=== PATIENT | female | born 1985 | race Caucasian/White ===

== ENCOUNTER → 2019-01-04 | Outpatient (CLI) | payer OTHER ==
[~2019-01-04] MED LIST: D50KC PO; ETON68IM2 SQ; FENO134C PO; FENO48TA2 PO; FOLI0.4T2 PO; LINA5TAB PO; METF-380 PO; METF500T8 PO; NF-ESOM40C PO; NF-LOVAZAC PO; PREN1TAB39 PO; SPIR100T37 PO; SPIR25TA3 PO
--- NOTE | 2019-01-04 13:54 | Diagnostic Imaging Report ---
PROCEDURE: US Non-ob pelvis comp/trans. TECHNIQUE: Multiple realtime grayscale images were obtained of the pelvis in various projections endovaginally. Transabdominal imaging was also performed. INDICATION: Heavy menses. The previous pelvic ultrasound of 12/25/2015 noted that the ovaries were enlarged and there were multiple subcentimeter follicles involving both ovaries. The possibility of polycystic ovarian syndrome was raised. On this study there are again multiple cysts/follicles associated with both ovaries, particularly the right ovary. The largest cyst on the right ovary measures approximately 1.4 x 2.7 cm. The largest cyst on the left ovary measures 0.7 x 1.6 mm. There is no solid pelvic mass or free fluid collection noted. The uterus is nongravid and not enlarged measuring 9.6 x 5.7 x 4.2 cm. There is a small 1.1 x 1.4 cm area of altered echogenicity within the uterine fundus. This may represent a small fibroid. The endometrial line is thickened, measuring 12 mm (normal 5 mm or less). This finding is nonspecific. Correlation with the patient's menstrual cycle recommended. IMPRESSION: 1. There are again cysts/follicles associated with both ovaries. These seem similar to the prior exam. There is no acute pelvic abnormality noted otherwise. 2. The uterus is prominent and there is a question of a small fibroid in the uterine fundus. Dictated by: Dictated on workstation # [id number]
== END ==
LOC: RAD 10:34
PROVIDERS: ATTEND Nurse Practitioner
DX: Z01.419 Encounter for gynecological examination (general) (routine) without abnormal findings (principal); N92.0 Excessive and frequent menstruation with regular cycle
CPT/HCPCS: 76830; 76856

== ENCOUNTER 2019-10-11 20:46 | Emergency (ER) | payer OTHER ==
[~2019-10-11] VITALS: Ht 162 cm; Wt 125.0 kg
--- OUTSIDE RECORDS SUMMARY | 2019-10-11 20:56 | XMS REPORT ---
Author Author Griselda GILBERT Organization [facility] Address [address] [place] [address] Care Team Providers Care Shipping Receiving Clerk Name Role Phone JASMEET GILBERT Unavailable PROBLEMS Type Condition ICD9-CM Code [id number] Code Onset Dates Condition S tatus SNOMED Code Problem Rhinosinusitis J32.9 Active 48198 4004 ALLERGIES No Information ENCOUNTERS Encounter Location Date Diagnosis [facility] [address] [facility] [id number] [address] [place] [id number] Mar, Encounter for immunization Z 23 [facility] [address] [facility] [id number] [address] [place] [id number] Feb, Rhinosinusitis J32.9 and BMI 40.0-44.9, adult Z68.41 IMMUNIZATIONS Vaccine Route Administration Date Status FLULAVAL QUAD 0.5ML (6 MO & UP) 2017 IM Intramuscular Mar 14 18 Administered SOCIAL HISTORY Never Assessed REASON FOR VISIT Flu shot Mustapha Baron MA PLAN OF CARE VITAL SIGNS MEDICATIONS Unknown Medications RESULTS No Results PROCEDURES Procedure Date Ordered Result Body Site FLULAVAL QUAD 0.5ML (6 MO AND UP) 2018 Mar 14, 2018 SINGLE IMMUNIZATION ADMIN Mar 14, 2018 INSTRUCTIONS MEDICATIONS ADMINISTERED No Known Medications MEDICAL (GENERAL) HISTORY Type Description Date Medical History Pre Daibetes Medical History PCOS Medical History Ashtma Medical History High Cholesterol Surgical History Gallbladder Surgery 2007 Surgical History Lt knee - cyst removed 2007 Surgical History 2013 Hospitalization History Post Op
--- OUTSIDE RECORDS SUMMARY | 2019-10-11 20:56 | XMS REPORT ---
Author Griselda Penny Organization [facility] Address [address] [place] [address] Care Team Providers Care Mixed Signal Design Engineer Name Role Phone TEOFILO GONZALES Unavailable PROBLEMS Type Condition ICD9-CM Code [id number] Code Onset Dates Condition S tatus SNOMED Code Problem Rhinosinusitis J32.9 Active 97926 2834 ALLERGIES Substance Reaction Event Type Date Status Penicillin V Potassium hives Drug Allergy Feb, Activ e ENCOUNTERS Encounter Location Date Diagnosis [facility] [address] [facility] [id number] [address] [place] [address] Feb, Rhinosinusitis J32.9 and BMI 40.0-44.9, adult Z68.41 IMMUNIZATIONS No Known Immunizations SOCIAL HISTORY Never Assessed REASON FOR VISIT sinus pressure, nasal drainage down the back of her throat, denies cough. been s ick for 3 days. sabrina PLAN OF CARE Activity Details Follow Up as needed or reg fu with itz martinez Reason: VITAL SIGNS Height 64 in 2018-02-11 Weight 260.0 lbs 2018-02-11 Temperature 97.6 degrees Fahrenheit 2018-02-11 Heart Rate 82 bpm 2018-02-11 Respiratory Rate 20 2018-02-11 BMI 44.62 kg/m2 2018-02-11 Blood pressure systolic 124 mmHg 2018-02-11 Blood pressure diastolic 78 mmHg 2018-02-11 MEDICATIONS Medication Instructions Dosage Frequency Start Date End Date Duration S tatus Lexapro 5 MG Orally Once a day 1 tablet 24h Active Singulair 10 MG Orally Once a day 1 tablet 24h Active Metformin HCl 500 MG ER Orally Once a day 1 tablet with a meal 24h Active Fenofibrate 145 MG Orally Once a day 1 capsule with food 24h Active ProAir HFA Inhalation every 6 hrs 2 puffs as needed 6h Active Pseudoephedrine HCl ER 120 MG Orally every 12 hrs 1 tablet as neede d 12h Feb, 10 days Active Spironolactone 100 MG Orally Once a day 1 tablet 24h Active RESULTS No Results PROCEDURES No Known procedures INSTRUCTIONS MEDICATIONS ADMINISTERED No Known Medications MEDICAL (GENERAL) HISTORY Type Description Date Medical History Pre Daibetes Medical History PCOS Medical History Asha Medical History High Cholesterol Surgical History Gallbladder Surgery 2007 Surgical History Lt knee - cyst removed 2007 Surgical History 2013 Hospitalization History Post Op
--- OUTSIDE RECORDS SUMMARY | 2019-10-11 20:56 | XMS REPORT ---
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 Address [address] [address] Care Team Providers Care Head Up Operator Name Role Phone JENNIFER CORRALES Unavailable JENNIFER CORRALES DO Unavailable Unavailable SAMAN CORRALESP Unavailable Unavailable JORGE LUIS SCOTT FACCJEROMY FACP CCDS Unavailable Unavailabl e TEOFILO GONZALES Unavailable JAY MANRIQUE COMMUNITY DEVELOPMENT TECHNICIAN Unavailable Unavailable Unavailable Unavailable Unavailable Unavailable Unavailable Unavailable Allergies Normalized Allergy Reported Date of Reaction(s) Care Provider Facility Allergy Type classification allergen Allergy Onset DA (22 Unclassified No Known Drug 10-16-2009 - no information SAMAN Not Available sources.) Allergies ANTONI (06979) Drug Allergy penicillin v penicillin v 02-11-2018 - [place] [facility] (1 source.) Translations: [facility]IAN [id number] [facility] [ Penicillin V of [facility]] [place] ([address]) Medications Medication Ingredient Drug Dose Dates Status Sig Sig Care Class(es) (Normalized) (Original) Provid er no albuterol beta2-Adren 2 Active take 2 ProAir HFA no information ergic puff(s puff(s) by Inhalation name (1 source.) Agonist ) inhalation every 6 hrs every six 2 puffs as hours as needed 6h needed Active escitalopra escitalopra Serotonin 5 mg Active no Lexapro 5 MG no m 5 mg oral m Reuptake information Orally Once name tablet (1 Translation Inhibitor a day 1 source.) s: [ tablet 24h Lexapro 5 Active MG] montelukast montelukast Leukotriene 10 mg Active no Singulai r 10 no 10 mg oral Translation Receptor information MG Orally name tablet (1 s: [ Antagonist Once a day 1 source.) Singulair tablet 24h 10 MG] Active 12 hr pseudoephed alpha-Adren 120 mg 02-12-20 Active no Pse udoephedr no pseudoePHED rine ergic 18 information ine HCl ER n leobardo rine Translation Agonist 120 MG hydrochlori s: [ Orally every de 120 mg Pseudoephed 12 hrs 1 extended rine HCl ER tablet as release 120 MG] needed 12h oral tablet Feb, (1 source.) 10 days Active Problems Problem Normalized Date Last Normalized Normalized Provider Fa cility Classification Problem(s) Recorded Problem Problem Sta tus Duration Unclassified Abnormal Episodic Active ALI JORGE LUIS , Not Leslie ilable (11 sources.) cardiovascular MD AVILA () function study, unspecified Other Body mass Chronic [facility] nutritional; index (BMI) [address] endocrine; and 40.0-44.9, of [facility] metabolic adult [place] ([address]781) disorders (1 Translations: source.) [ - BMI 40.0-44.9, adult Z68.41] Other Body Mass Chronic Active ALI JORGE LUIS , Not Avail able nutritional; Index MD AVILA () endocrine; and 45.0-49.9, metabolic adult disorders (11 sources.) Other upper Chronic Chronic Active [facility] respiratory sinusitis, [address] infections (2 unspecified of [place] sources.) Translations: [place] () [ Rhinosinusitis , - Rhinosinusitis J32.9] Other nervous Disturbances Episodic Active SAMAN Not A vailable system of sensation CORRALES (84699) disorders (9 of smell and sources.) taste Spondylosis; Dorsalgia, Episodic Active SAMAN Not Avai lable intervertebral unspecified CORRALES (82677) disc Translations: disorders; [ other back RADICULOPATHY, problems (20 SITE sources.) UNSPECIFIED] Menstrual Excessive and Chronic Active JAY [facility] Via disorders (2 frequent Gayle sources.) menstruation Hospital - with regular [place] cycle (43914) Headache; Headache Episodic Active SAMAN Not Available including CORRALES (75192) migraine (9 sources.) Other Long-term Episodic Active ALI JORGE LUIS , Not Avail able aftercare (11 (current) use MD AVILA (91432) sources.) of other medications Other Obesity, Chronic Active ALI JORGE LUIS , Not Availa ble nutritional; unspecified MD FACC (85126) endocrine; and metabolic disorders (11 sources.) Diabetes Other abnormal Episodic Active ALI JORGE LUIS , Not Available mellitus glucose [facility] (56170) without complication (11 sources.) Other Other and Chronic Active SAMAN Not Availabl e endocrine unspecified CORRALES (34144) disorders (9 anterior sources.) pituitary hyperfunction Disorders of Other and Chronic Active ALI JORGE LUIS , Not Av ailable lipid unspecified MD FAC (46257) metabolism (11 hyperlipidemia sources.) Nonspecific Other chest Episodic Active JENNIFER Not Avai lable chest pain (22 pain CORRALES , DO (96607) sources.) Translations: [ CHEST PAIN NOS] Other Polycystic Chronic Active SAMAN Not Availab le endocrine ovarian CORRALES (58253) disorders (11 syndrome sources.) Spondylosis; Spinal Episodic Active JONATHON SWEET , Not A vailable intervertebral stenosis[place] ([address]) disc lumbosacral disorders; region other back Translations: problems (9 [ OTHER sources.) INTERVERTEBRAL DISC DISPLACEMENT, , INTVRT DISC STENOSIS OF NEURAL CANAL OF ] Procedures The data below is from unstructured sourcesNo known history of procedures. No Known procedures No Known procedures Immunizations Normalized Immunization Date Notes Care Provider Facili ty Immunization influenza, seasonal, 02-01-2019 no information no name [facility] injectable [facility] ([address]555) influenza, seasonal, 03-14-2018 no information no name [facility] injectable [facility] ([address]) Results The data below is from unstructured sources No Results Vital Signs Vital Sign Value Interpretation Reference Date Time Care Prov ider Facility (Normalized) (Normalized) Range BMI (Body Mass 44.62 kg/m2 (no code) 15 - 25 kg/m2 02-11-2018 [facility] Index) 14:40-[address] ([address]) Body 97.6 [degF] (no code) 97.8 - 99.0 02-11-2018 [facility] Temperature [degF] 14:40-[address] ([address]) Height 162.56 cm (no code) cm 02-11-2018 [facility] unity 14:40-[address] ([address]) Weight 117.94 kg (no code) kg 02-11-2018 TEOFILO Alvarado unity 14:40-5070 [place] [address] [facility] ([address]) Interventions No Information Plan of Treatment The data below is from unstructured sources Activity Details Follow Up as needed or reg fu with p cp Reason: Goals No Information Social History No Information Functional Status The data below is from unstructured sources Query Response Date Len rded Patient Orientation Person Place Time Situation Normal For Age November 12, 2013 7:46pm Mental Status No Information Encounters Encounter Normalized Encounter Encounter Diagnosis Care Provi gregory Organization Date Type 02-11-2018 (WALK-IN) Walk-In Care Chronic sinusitis, TEOFILO GONZALES (no [facility] unspecified phone) CARE (no phone) 08-28-2017 Patient encounter no information no name no or ganization name 12-25-2015 Patient encounter no information no name no or ganization name 11-19-2015 Patient encounter no information no name no or ganization name 11-10-2015 Patient encounter no information no name no or ganization name 11-12-2013 Patient encounter no information no name no or ganization name - 11-12-2013 08-02-2012 Patient encounter no information no name no or ganization name Patient encounter no information no name no organizat ion name 01-04-2019 Patient encounter no information no name no or ganization name procedure no information Encounter for no name no organization name gynecological examination (general) (routine) without abnormal findings Medical Equipment No Information Payers No Information Advance Directives Directive Response Recor ded Date/Time Advance Directives No 11:12am Health Care Power of Him Specialists No 11/12/13 11:12am Organ Donor Yes 11/12/13 11:12am Resuscitation Status Full Code 11/12/13 11:12am Discharge Instructions No hospital discharge instructions. Additional Source Comments This clinical document has been generated using [employer] software that has been certified by the Office of the National Coordinator for Health Information Technology (ONC 15.99.04.3023.Diam.31.00.0.692473) and the National Committee for Electronic Science Teacher (NCQA, as an eMeasure certified technology). FOR RECORDS PERTAINING TO PATIENTS WHO ARE OR HAVE BEEN ENROLLED IN A CHEMICAL D EPENDENCY/SUBSTANCE ABUSE PROGRAM, SOME INFORMATION MAY BE OMITTED. This clinica l summary was aggregated from multiple sources. Caution should be exercised in using it in the provision of clinical care. This summary normalizes information from multiple sources, and as a consequence, information in this document may ma terially change the coding, format and clinical context of patient data. In parag tion, data may be omitted in some cases. CLINICAL DECISIONS SHOULD BE BASED ON T HE PRIMARY CLINICAL RECORDS. [employer] [facility]. provides no warranty or guara ntee of the accuracy or completeness of information in this document.The followi ng information is based on time limited clinical information UNRECOGNIZED CONTENT PROVIDED BELOW FOR UNRECOGNIZED SECTION REASON FOR VISIT sinus pressure, nasal drainage down the back of her throat, denies cough. been s ick for 3 days. [email or web address] UNRECOGNIZED CONTENT PROVIDED BELOW FOR UNRECOGNIZED SECTION MEDICAL (GENERAL) HISTORY Type Description Date Medical History Pre Daibetes Medical History PCOS Medical History Ashtma Medical History High Cholesterol Surgical History Gallbladder Surgery 2007 Surgical History Lt knee - cyst removed 2007 Surgical History 2013 Hospitalization History Post Op
--- OUTSIDE RECORDS SUMMARY | 2019-10-11 20:57 | XMS REPORT | Continuity of Care Document ---
Author Organization Unknown Address Unknown Phone Unavailable Allergies Active Description Code Type Severity Reaction Onset Reported/Identified Relationship to Patient Clinical Status Yes No Known Drug Allergies [id number] Drug Allergy Unknown N/A 10/16/2009 Medications There is no data. Problems Date Dx Coded Attending Type Code Diagnosis Diagnosed By 11/12/2013 JORGE LUIS SCOTT FACC, JEROMY FACP CCDS Ot 272.4 HYPERLIPIDEMIA NEC/NOS 11/12/2013 JORGE LUIS SCOTT FACC, JEROMY FACP CCDS Ot 278.00 OBESITY, NOS 11/12/2013 JORGE LUIS SCOTT FACC, ALI FACP CCDS Ot 786.59 CHEST PAIN NEC 11/12/2013 JORGE LUIS SCOTT FACC, JEROMY FACP CCDS Ot 790.29 OTHER ABNORMAL GLUCOSE 11/12/2013 JORGE LUIS SCOTT FACC, JEROMY FACP CCDS Ot 794.30 ABN CARDIOVASC STUDY NOS 11/12/2013 JORGE LUIS SCOTT FACC, JEROMY FACP CCDS Ot V58.69 OTH MED,LT,CURRENT USE 11/12/2013 JORGE LUIS SCOTT FACC, JEROMY FACP CCDS Ot V85.42 BODY MASS INDEX 45.0-49.9, ADULT 12/14/2014 Ot 571.8 12/14/2014 Ot 574.20 12/14/2014 Ot 789.1 12/14/2014 Ot 574.20 12/14/2014 Ot V72.63 12/14/2014 Ot 250.00 12/14/2014 Ot 574.10 12/14/2014 Ot V58.69 12/14/2014 Ot 253.1 12/14/2014 Ot 781.1 12/14/2014 Ot 784.0 12/14/2014 JENNIFER CORRALES DO Ot 786.50 03/05/2015 Ot 571.8 03/05/2015 Ot 574.20 03/05/2015 Ot 789.1 03/05/2015 Ot 574.20 03/05/2015 Ot V72.63 03/05/2015 Ot 250.00 03/05/2015 Ot 574.10 03/05/2015 Ot V58.69 03/05/2015 Ot 253.1 03/05/2015 Ot 781.1 03/05/2015 Ot 784.0 03/05/2015 JENNIFER CORRALES DO Ot 786.50 04/17/2015 Ot 253.1 04/17/2015 Ot 781.1 04/17/2015 Ot 784.0 04/17/2015 JENNIFER CORRALES DO Ot 786.50 11/10/2015 Ot 253.1 ANT PITUIT HYPERFUNC NEC 11/10/2015 Ot 781.1 SMEL L TASTE DISTURB 11/10/2015 Ot 784.0 HEAD ACHE 11/10/2015 JENNIFER CORRALES DO Ot 786.50 CHEST PAIN NOS 11/11/2015 SAMAN CORRALES Ot M54.10 RADICULOPATHY, SITE UNSPECIFIED 11/24/2015 JENNIFER CORRALES DO Ot M54.9 DORSALGIA, UNSPECIFIED 11/26/2015 Ot 253.1 ANT PITUIT HYPERFUNC NEC 11/26/2015 Ot 781.1 SMEL L TASTE DISTURB 11/26/2015 Ot 784.0 HEAD ACHE 11/26/2015 JENNIFER CORRALES DO Ot 786.50 CHEST PAIN NOS 11/26/2015 SAMAN CORRALES Ot M54.10 RADICULOPATHY, SITE UNSPECIFIED 11/26/2015 JENNIFER CORRALES DO Ot M54.9 DORSALGIA, UNSPECIFIED 12/04/2015 SAMAN CORRALESP Ot M54.10 RADICULOPATHY, SITE UNSPECIFIED 12/25/2015 Ot 253.1 ANT PITUIT HYPERFUNC NEC 12/25/2015 Ot 781.1 SMEL L TASTE DISTURB 12/25/2015 Ot 784.0 HEAD ACHE 12/25/2015 JENNIFER CORRALES DO Ot 786.50 CHEST PAIN NOS 12/25/2015 SAMAN CORRALES REGISTERED NURSE MATERNITY Ot M54.10 RADICULOPATHY, SITE UNSPECIFIED 12/25/2015 JENNIFER CORRALES DO Ot M54.9 DORSALGIA, UNSPECIFIED 01/04/2016 JENNIFER CORRALES DO Ot M54.9 DORSALGIA, UNSPECIFIED 01/07/2016 SAMAN CORRALES REGISTERED NURSE MATERNITY Ot E28.2 POLYCYSTIC OVARIAN SYNDROME 01/21/2016 Ot 253.1 ANT PITUIT HYPERFUNC NEC 01/21/2016 Ot 781.1 SMEL L TASTE DISTURB 01/21/2016 Ot 784.0 HEAD ACHE 01/21/2016 JENNIFER CORRALES DO Ot 786.50 CHEST PAIN NOS 01/21/2016 SAMAN CORRALESP Ot M54.10 RADICULOPATHY, SITE UNSPECIFIED 01/21/2016 JENNIFER CORRALES DO Ot M54.9 DORSALGIA, UNSPECIFIED 01/21/2016 SAMAN CORRALES REGISTERED NURSE MATERNITY Ot E28.2 POLYCYSTIC OVARIAN SYNDROME 01/23/2016 Ot 253.1 ANT PITUIT HYPERFUNC NEC 01/23/2016 Ot 781.1 SMEL L TASTE DISTURB 01/23/2016 Ot 784.0 HEAD ACHE 01/23/2016 JENNIFER CORRALES DO Ot 786.50 CHEST PAIN NOS 01/23/2016 SAMAN CORRALESP Ot M54.10 RADICULOPATHY, SITE UNSPECIFIED 01/23/2016 JENNIFER CORRALES DO Ot M54.9 DORSALGIA, UNSPECIFIED 01/23/2016 SAMAN CORRALES REGISTERED NURSE MATERNITY Ot E28.2 POLYCYSTIC OVARIAN SYNDROME 01/23/2016 Ot 253.1 ANT PITUIT HYPERFUNC NEC 01/23/2016 Ot 781.1 SMEL L TASTE DISTURB 01/23/2016 Ot 784.0 HEAD ACHE 01/23/2016 JENNIFER CORRALES DO Ot 786.50 CHEST PAIN NOS 01/23/2016 SAMAN CORRALES REGISTERED NURSE MATERNITY Ot M54.10 RADICULOPATHY, SITE UNSPECIFIED 01/23/2016 JENNIFER CORRALES DO Ot M54.9 DORSALGIA, UNSPECIFIED 01/23/2016 SAMAN CORRALES REGISTERED NURSE MATERNITY Ot E28.2 POLYCYSTIC OVARIAN SYNDROME 04/11/2016 Ot 253.1 ANT PITUIT HYPERFUNC NEC 04/11/2016 Ot 781.1 SMEL L TASTE DISTURB 04/11/2016 Ot 784.0 HEAD ACHE 04/11/2016 JENNIFER CORRALES DO Ot 786.50 CHEST PAIN NOS 04/11/2016 CORRALES, SAMAN L REGISTERED NURSE MATERNITY Ot M54.10 RADICULOPATHY, SITE UNSPECIFIED 04/11/2016 JENNIFER CORRALES DO Ot M54.9 DORSALGIA, UNSPECIFIED 04/11/2016 SAMAN CORRALES REGISTERED NURSE MATERNITY Ot E28.2 POLYCYSTIC OVARIAN SYNDROME 04/29/2016 Ot 253.1 ANT PITUIT HYPERFUNC NEC 04/29/2016 Ot 781.1 SMEL L TASTE DISTURB 04/29/2016 Ot 784.0 HEAD ACHE 04/29/2016 JENNIFER CORRALES DO Ot 786.50 CHEST PAIN NOS 04/29/2016 SAMAN CORRALES REGISTERED NURSE MATERNITY Ot M54.10 RADICULOPATHY, SITE UNSPECIFIED 04/29/2016 JENNIFER CORRALES DO Ot M54.9 DORSALGIA, UNSPECIFIED 04/29/2016 SAMAN CORRALES REGISTERED NURSE MATERNITY Ot E28.2 POLYCYSTIC OVARIAN SYNDROME 05/18/2016 Ot 253.1 ANT PITUIT HYPERFUNC NEC 05/18/2016 Ot 781.1 SMEL L TASTE DISTURB 05/18/2016 Ot 784.0 HEAD ACHE 05/18/2016 JENNIFER CORRALES DO Ot 786.50 CHEST PAIN NOS 05/18/2016 SAMAN CORRALESP Ot M54.10 RADICULOPATHY, SITE UNSPECIFIED 05/18/2016 JENNIFER CORRALES DO Ot M54.9 DORSALGIA, UNSPECIFIED 05/18/2016 SAMAN CORRALES REGISTERED NURSE MATERNITY Ot E28.2 POLYCYSTIC OVARIAN SYNDROME 07/28/2016 Ot 253.1 ANT PITUIT HYPERFUNC NEC 07/28/2016 Ot 781.1 SMEL L TASTE DISTURB 07/28/2016 Ot 784.0 HEAD ACHE 07/28/2016 JENNIFER CORRALES DO Ot 786.50 CHEST PAIN NOS 07/28/2016 SAMAN CORRALES REGISTERED NURSE MATERNITY Ot M54.10 RADICULOPATHY, SITE UNSPECIFIED 07/28/2016 JENNIFER CORRALES DO Ot M54.9 DORSALGIA, UNSPECIFIED 07/28/2016 SAMAN CORRALES REGISTERED NURSE MATERNITY Ot E28.2 POLYCYSTIC OVARIAN SYNDROME 07/18/2017 Ot 253.1 ANT PITUIT HYPERFUNC NEC 07/18/2017 Ot 781.1 SMEL L TASTE DISTURB 07/18/2017 Ot 784.0 HEAD ACHE 07/18/2017 JENNIFER CORRALES DO Ot 786.50 CHEST PAIN NOS 07/18/2017 JULIÁN CORRALESIA L REGISTERED NURSE MATERNITY Ot M54.10 RADICULOPATHY, SITE UNSPECIFIED 07/18/2017 JENNIFER CORRALES DO Ot M54.9 DORSALGIA, UNSPECIFIED 07/18/2017 JULIÁN CORRALESIA L REGISTERED NURSE MATERNITY Ot E28.2 POLYCYSTIC OVARIAN SYNDROME 07/19/2017 Ot 253.1 ANT PITUIT HYPERFUNC NEC 07/19/2017 Ot 781.1 SMEL L TASTE DISTURB 07/19/2017 Ot 784.0 HEAD ACHE 07/19/2017 JENNIFER CORRALES DO Ot 786.50 CHEST PAIN NOS 07/19/2017 JULIÁN CORRALESIA L REGISTERED NURSE MATERNITY Ot M54.10 RADICULOPATHY, SITE UNSPECIFIED 07/19/2017 JENNIFER CORRALES DO Ot M54.9 DORSALGIA, UNSPECIFIED 07/19/2017 JULIÁN CORRALESIA L REGISTERED NURSE MATERNITY Ot E28.2 POLYCYSTIC OVARIAN SYNDROME 07/20/2017 Ot 253.1 ANT PITUIT HYPERFUNC NEC 07/20/2017 Ot 781.1 SMEL L TASTE DISTURB 07/20/2017 Ot 784.0 HEAD ACHE 07/20/2017 JENNIFER CORRALES DO Ot 786.50 CHEST PAIN NOS 07/20/2017 JULIÁN CORRALESIA L REGISTERED NURSE MATERNITY Ot M54.10 RADICULOPATHY, SITE UNSPECIFIED 07/20/2017 JENNIFER CORRALES DO Ot M54.9 DORSALGIA, UNSPECIFIED 07/20/2017 ALFIE CORRALESRICIA L REGISTERED NURSE MATERNITY Ot E28.2 POLYCYSTIC OVARIAN SYNDROME 08/24/2017 Ot 253.1 ANT PITUIT HYPERFUNC NEC 08/24/2017 Ot 781.1 SMEL L TASTE DISTURB 08/24/2017 Ot 784.0 HEAD ACHE 08/24/2017 JENNIFER CORRALES DO Ot 786.50 CHEST PAIN NOS 08/24/2017 JULIÁN CORRALESIA L REGISTERED NURSE MATERNITY Ot M54.10 RADICULOPATHY, SITE UNSPECIFIED 08/24/2017 JENNIFER CORRALES DO Ot M54.9 DORSALGIA, UNSPECIFIED 08/24/2017 SAMAN CORRALES REGISTERED NURSE MATERNITY Ot E28.2 POLYCYSTIC OVARIAN SYNDROME 08/25/2017 Ot 253.1 ANT PITUIT HYPERFUNC NEC 08/25/2017 Ot 781.1 SMEL L TASTE DISTURB 08/25/2017 Ot 784.0 HEAD ACHE 08/25/2017 JENNIFER CORRALES DO Ot 786.50 CHEST PAIN NOS 08/25/2017 SAMAN CORRALES REGISTERED NURSE MATERNITY Ot M54.10 RADICULOPATHY, SITE UNSPECIFIED 08/25/2017 JENNIFER CORRALES DO Ot M54.9 DORSALGIA, UNSPECIFIED 08/25/2017 SAMAN CORRALES REGISTERED NURSE MATERNITY Ot E28.2 POLYCYSTIC OVARIAN SYNDROME 08/29/2017 SWEET PA, JONATHON R Ot M48. 07 SPINAL STENOSIS, LUMBOSACRAL REGION 08/29/2017 SWEET PA, JONATHON R Ot M51. 27 OTHER INTERVERTEBRAL DISC DISPLACEMENT, 08/29/2017 SWEET PA, JONATHON R Ot M99. 53 INTVRT DISC STENOSIS OF NEURAL CANAL OF 09/13/2017 SWEET PA, JONATHON R Ot M48. 07 SPINAL STENOSIS, LUMBOSACRAL REGION 09/13/2017 SWEET PA, JONATHON R Ot M51. 27 OTHER INTERVERTEBRAL DISC DISPLACEMENT, 09/13/2017 SWEET PA, JONATHON R Ot M99. 53 INTVRT DISC STENOSIS OF NEURAL CANAL OF 11/29/2017 Ot 253.1 ANT PITUIT HYPERFUNC NEC 11/29/2017 Ot 781.1 SMEL L TASTE DISTURB 11/29/2017 Ot 784.0 HEAD ACHE 11/29/2017 JENNIFER OCRRALES DO Ot 786.50 CHEST PAIN NOS 11/29/2017 SAMAN CORRALES REGISTERED NURSE MATERNITY Ot M54.10 RADICULOPATHY, SITE UNSPECIFIED 11/29/2017 JENNIFER CORRALES DO Ot M54.9 DORSALGIA, UNSPECIFIED 11/29/2017 ASMAN CORRALES REGISTERED NURSE MATERNITY Ot E28.2 POLYCYSTIC OVARIAN SYNDROME 11/29/2017 SWEET PA, JONATHON R Ot M48. 07 SPINAL STENOSIS, LUMBOSACRAL REGION 11/29/2017 SWEET PA, JONATHON R Ot M51. 27 OTHER INTERVERTEBRAL DISC DISPLACEMENT, 11/29/2017 SWEET PA, JONATHON R Ot M99. 53 INTVRT DISC STENOSIS OF NEURAL CANAL OF 11/29/2017 SWEET PA, JONATHON R Ot M48. 07 SPINAL STENOSIS, LUMBOSACRAL REGION 11/29/2017 SWEET PA, JONATHON R Ot M51. 27 OTHER INTERVERTEBRAL DISC DISPLACEMENT, 11/29/2017 SWEET PA, JONATHON R Ot M99. 53 INTVRT DISC STENOSIS OF NEURAL CANAL OF 11/29/2017 CORRALES DO, JENNIFER J Ot 786.50 CHEST PAIN NOS 05/20/2018 CORRALES DO, JENNIFER J Ot 786.50 CHEST PAIN NOS 05/20/2018 CORRALESSAMAN RENTERIA REGISTERED NURSE MATERNITY Ot M54.10 RADICULOPATHY, SITE UNSPECIFIED 05/20/2018 CORRALES DO, JENNIFER J Ot M54.9 DORSALGIA, UNSPECIFIED 05/20/2018 CORRALESJULIÁN RENTERIAIA L REGISTERED NURSE MATERNITY Ot E28.2 POLYCYSTIC OVARIAN SYNDROME 05/20/2018 SWEET PA, JONATHON R Ot M48. 07 SPINAL STENOSIS, LUMBOSACRAL REGION 05/20/2018 SWEET PA, JONATHON R Ot M51. 27 OTHER INTERVERTEBRAL DISC DISPLACEMENT, 05/20/2018 SWEET PA, JONATHON R Ot M99. 53 INTVRT DISC STENOSIS OF NEURAL CANAL OF 06/14/2018 CORRALES DO, JENNIFER J Ot 786.50 CHEST PAIN NOS 06/14/2018 CORRALESJULIÁN RENTERIAIA L REGISTERED NURSE MATERNITY Ot M54.10 RADICULOPATHY, SITE UNSPECIFIED 06/14/2018 CORRALES DO, JENNIFER J Ot M54.9 DORSALGIA, UNSPECIFIED 06/14/2018 SAMAN CORRALES REGISTERED NURSE MATERNITY Ot E28.2 POLYCYSTIC OVARIAN SYNDROME 06/14/2018 SWEET PA, JONATHON R Ot M48. 07 SPINAL STENOSIS, LUMBOSACRAL REGION 06/14/2018 SWEET PA, JONATHON R Ot M51. 27 OTHER INTERVERTEBRAL DISC DISPLACEMENT, 06/14/2018 SWEET PA, JONATHON R Ot M99. 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 Results There is no data. Encounters ACCT No. Visit Date/Time Discharge Status Pt. Type Provider Facility Loc./Unit Complaint [id number] 01/04/2019 10:34:00 019 23:59:59 CLS Outpatient JAY MANRIQUE Xavi OVALLE [facility] RAD MENORRHAGIA [id number] 08/28/2017 09:18:00 018 23:59:59 CLS Outpatient JONATHON JAEGER [facility] RAD BACK PAIN [id number] 12/25/2015 11:57:00 016 23:59:59 CLS Outpatient SAMAN CORRALES [facility] RAD PCOS [id number] 11/19/2015 08:01:00 016 23:59:59 CLS Outpatient JENNIFER CORRALES DO [facility] RAD BACK PAIN, EXTR A VERTEBRAE [id number] 11/10/2015 09:37:00 016 23:59:59 CLS Outpatient SAMAN CORRALES [facility] RAD BACK PAIN [id number] 11/12/2013 10:42:00 014 19:30:00 DIS Outpatient JORGE LUIS SCOTT FACC, JEROMY DOMINGUEZ CC DS [facility] CATH ABN STRESS,CP [id number] 11/05/2013 06:43:00 014 23:59:59 CLS Outpatient JENNIFER CORRALES DO [facility] CARD CP [id number] 08/02/2012 13:31:00 Document Registration [id number] 10/20/2009 05:37:00 Document Registration [id number] 10/16/2009 08:40:00 Document Registration [id number] 09/25/2009 07:50:00 Document Registration
--- NOTE | 2019-10-11 21:10 | ED Abdominal Pain ---
General Stated Complaint: ABD PAIN, FEVER Source of Information: Patient Exam Limitations: No Limitations History of Present Illness Date Seen by Provider: Oct 11, 2019 Time Seen by Provider: 21:08 Initial Comments To ER with left lower quadrant abdominal pain that began yesterday very mild. She thought maybe she had pulled a muscle. Pain has progressively gotten worse, it was severe last night and is still severe. She does have a history of PCO S and ovarian cysts. The pain is worse when she strains to have a bowel movement or has gas. Mother has a history of diverticulosis/diverticulitis. She herself does not she is aware of. She developed a fever up to 100.4 earlier today. She has also had some nausea. Timing/Duration: 1-2 Days Severity/Quality: Moderate, Severe Location: LLQ Radiation: No Radiation Activities at Onset: None Associated Symptoms: Nausea/Vomiting Allergies and Home Medications Allergies Coded Allergies: No Known Drug Allergies (Unverified , 10/16/09) Home Medications Ergocalciferol 50,000 Unit Capsule, 50,000 UNIT PO WEEKLY ON MONDAY, (Reported) Etonogestrel 68 Mg Implant, 68 MG SQ UD, (Reported) Fenofibrate,Micronized 134 Mg Capsule, 134 MG PO DAILY, (Reported) Linagliptin 5 Mg Tablet, 5 MG PO DAILY, (Reported) Spironolactone 100 Mg Tablet, 100 MG PO DAILY, (Reported) Patient Home Medication List Home Medication List Reviewed: Yes Review of Systems Review of Systems Constitutional: see HPI EENTM: No Symptoms Reported Respiratory: No Symptoms Reported Cardiovascular: No Symptoms Reported Gastrointestinal: See HPI, Abdominal Pain, Nausea Genitourinary: No Symptoms Reported Musculoskeletal: no symptoms reported Skin: no symptoms reported Psychiatric/Neurological: No Symptoms Reported Endocrine: No Symptoms Reported Hematologic/Lymphatic: No Symptoms Reported Past Rgbtbaf-Jkisik-Tqubne Hx Patient Social History Recent Foreign Travel: No Contact w/Someone Who Travel: No Past Medical History Reproductive Disorders: No Physical Exam Vital Signs Vital Signs - First Documented 10/11/19 21:10 Temp 38.7 Pulse 129 Resp 16 B/P (MAP) 153/93 (113) O2 Delivery Room Air Capillary Refill : Height/Weight/BMI Height: 5'4.00" Weight: 266lbs. oz. 120.870805sz; BMI Method: General Appearance: WD/WN, mild distress, obese HEENT: PERRL/EOMI, normal ENT inspection Neck: non-tender, full range of motion Respiratory: no respiratory distress, no accessory muscle use Cardiovascular: no murmur, tachycardia Gastrointestinal: normal bowel sounds, soft, tenderness Extremities: normal range of motion, non-tender Neurologic/Psychiatric: alert, normal mood/affect, oriented x 3 Skin: normal color, warm/dry Progress/Results/Core Measures Results/Orders Lab Results Laboratory Tests Test 10/11/19 21:12 Range/Units White Blood Count 14.5 H 4.3-11.0 10^3/uL Red Blood Count 4.76 4.35-5.85 10^6/uL Hemoglobin 13.7 11.5-16.0 G/DL Hematocrit 41 35-52 % Mean Corpuscular Volume 86 80-99 FL Mean Corpuscular Hemoglobin 29 25-34 PG Mean Corpuscular Hemoglobin Concent 34 32-36 G/DL Red Cell Distribution Width 13.7 10.0-14.5 % Platelet Count 299 130-400 10^3/uL Mean Platelet Volume 9.0 7.4-10.4 FL Neutrophils (%) (Auto) 80 H 42-75 % Lymphocytes (%) (Auto) 12 12-44 % Monocytes (%) (Auto) 7 0-12 % Eosinophils (%) (Auto) 1 0-10 % Basophils (%) (Auto) 0 0-10 % Neutrophils # (Auto) 11.6 H 1.8-7.8 X 10^3 Lymphocytes # (Auto) 1.7 1.0-4.0 X 10^3 Monocytes # (Auto) 1.1 H 0.0-1.0 X 10^3 Eosinophils # (Auto) 0.1 0.0-0.3 10^3/uL Basophils # (Auto) 0.0 0.0-0.1 10^3/uL Neutrophils % (Manual) 82 % Lymphocytes % (Manual) 10 % Monocytes % (Manual) 8 % Eosinophils % (Manual) 0 % Basophils % (Manual) 0 % Band Neutrophils 0 % Blood Morphology Comment NORMAL Urine Color YELLOW Urine Clarity CLEAR Urine pH 6.5 5-9 Urine Specific [place] <=1.005 1.016-1.022 Urine Protein 2+ H NEGATIVE Urine Glucose (UA) TRACE H NEGATIVE Urine Ketones NEGATIVE NEGATIVE Urine Nitrite NEGATIVE NEGATIVE Urine Bilirubin NEGATIVE NEGATIVE Urine Urobilinogen 0.2 < = 1.0 MG/DL Urine Leukocyte Esterase NEGATIVE NEGATIVE Urine RBC (Auto) NEGATIVE NEGATIVE Urine RBC NONE /HPF Urine WBC NONE /HPF Urine Squamous Epithelial Cells RARE /HPF Urine Crystals NONE /LPF Urine Bacteria TRACE /HPF Urine Casts NONE /LPF Urine Mucus NEGATIVE /LPF Urine Culture Indicated NO Sodium Level 139 135-145 MMOL/L Potassium Level 3.7 3.6-5.0 MMOL/L Chloride Level 102 98-107 MMOL/L Carbon Dioxide Level 23 21-32 MMOL/L Anion Gap 14 5-14 MMOL/L Blood Urea Nitrogen 7 7-18 MG/DL Creatinine 0.79 0.60-1.30 MG/DL Estimat Glomerular Filtration Rate > 60 BUN/Creatinine Ratio 9 Glucose Level 142 H 70-105 MG/DL Calcium Level 9.6 8.5-10.1 MG/DL Corrected Calcium 9.4 8.5-10.1 MG/DL Total Bilirubin 0.4 0.1-1.0 MG/DL Aspartate Amino Transf (AST/SGOT) 21 5-34 U/L Alanine Aminotransferase (ALT/SGPT) 23 0-55 U/L Alkaline Phosphatase 48 40-136 U/L Total Protein 7.7 6.4-8.2 GM/DL Albumin 4.3 3.2-4.5 GM/DL Serum Test, Qualitative NEGATIVE NEGATIVE My Orders Orders - CURTIS BERNAL APRN Cbc With Automated Diff (10/11/19 21:06) Comprehensive Metabolic Panel (10/11/19 21:06) Hcg,Qualitative Serum (10/11/19 21:06) Ed Iv/Invasive Line Start (10/11/19 21:06) Ct Abdomen/Pelvis W (10/11/19 21:06) Fentanyl Injection (Sublimaze Injection (10/11/19 21:15) Ns Iv 1000 Ml (Sodium Chloride 0.9%) (10/11/19 21:15) Manual Differential (10/11/19 21:12) Iohexol Injection (Omnipaque 350 Mg/Ml 1 (10/11/19 22:00) Received Contrast (Hold Metformin- Contr (10/11/19 22:00) Ns (Ivpb) (Sodium Chloride 0.9% Ivpb Bag (10/11/19 22:00) Ceftriaxone For Iv Use (Rocephin For I (10/11/19 22:15) Metronidazole 500mg/100ml Ivpb (Flagyl 5 (10/11/19 22:15) Rx-Hydrocodone/Apap 5-325 Mg (Rx-Vicodin (10/11/19 22:15) Medications Given in ED Current Medications Medications Dose Ordered Sig/Mabel Route Start Time Stop Time Status Last Admin Dose Admin Fentanyl Citrate 25 mcg ONCE ONCE IVP 10/11/19 21:30 10/11/19 21:31 DC 10/11/19 21:30 25 MCG Iohexol 100 ml ONCE ONCE IV 10/11/19 22:00 10/11/19 22:01 DC 10/11/19 22:02 100 ML Sodium Chloride 100 ml ONCE ONCE IV 10/11/19 22:00 10/11/19 22:01 DC 10/11/19 22:02 80 ML Vital Signs/I&O 10/11/19 21:10 Temp 38.7 Pulse 129 Resp 16 B/P (MAP) 153/93 (113) O2 Delivery Room Air Departure Communication (Admissions) Pain is pretty well controlled after 25 g of fentanyl, no nausea or vomiting at this time. She should be fine for outpatient treatment. We'll do a dose of Fla gyl and Rocephin here. Impression Primary Impression: Diverticulitis of intestine Disposition: HOME, SELF-CARE Condition: Stable Departure-Patient Inst. Decision time for Depature: 22:21 Referrals: JENNIFER CORRALES DO (PCP/Family) Primary Care Physician Patient Instructions: Diverticulitis Add. Discharge Instructions: 1. Clear liquids for the next 23-48 hours. Return to ER for any vomiting or severe nausea that presents to from taking the oral antibiotics. Take the pain medication as directed. If a full tablet is too strong then try a half of a tablet. Also if Tylenol and Motrin are sufficient for pain controlled and that would be a perfectly suitable option as well. Follow-up with your doctor next week for recheck. I will fax your records to them Scripts Amoxicillin/Potassium Clav (Augmentin 875-125 Tablet) 1 Each Tablet 1 EACH PO BID, #14 TAB 0 Refills Prov: CURTIS BERNAL APRN 10/11/19 Copy Copies To 1: JENNIFER CORRALES PETER J APRN Oct 11, 2019 21:10
[2019-10-11] MEDS ORDERED: NS IV 1000 ML 1,000 ML IV SCH (21:15)
[2019-10-11] MEDS ORDERED: fentaNYL INJECTION 100 MCG/2 ML AMP IVP ONE ×2 (21:15→21:30)
[2019-10-11 21:21] LABS: BASOPHILS % (AUTO) 0 % (0-10); EOSINOPHILS # (AUTO) 0.1 10^3/uL (0.0-0.3); EOSINOPHILS % (AUTO) 1 % (0-10); HEMATOCRIT 41 % (35-52); HEMOGLOBIN 13.7 G/DL (11.5-16.0); LYMPHOCYTES # (AUTO) 1.7 X 10^3 (1.0-4.0); LYMPHOCYTES % (AUTO) 12 % (12-44); MEAN CORPUSCULAR HEMOGLOBIN 29 PG (25-34); MEAN CORPUSCULAR HGB CONC 34 G/DL (32-36); MEAN CORPUSCULAR VOLUME 86 FL (80-99); MONOCYTES # (AUTO) 1.1 X 10^3 (0.0-1.0); MONOCYTES % (AUTO) 7 % (0-12); NEUTROPHILS # (AUTO) 11.6 X 10^3 (1.8-7.8); NEUTROPHILS % (AUTO) 80 % (42-75); PLATELET COUNT 299 10^3/uL (130-400); RED CELL DISTRIBUTION WIDTH 13.7 % (10.0-14.5); WHITE BLOOD COUNT 14.5 10^3/uL (4.3-11.0)
[2019-10-11 21:22] LABS: BILIRUBIN,URINE NEGATIVE (NEGATIVE); CLARITY,URINE CLEAR; COLOR,URINE YELLOW; GLUCOSE, URINE (UA) TRACE (NEGATIVE); KETONES,URINE NEGATIVE (NEGATIVE); LEUKOCYTE ESTERASE ,URINE NEGATIVE (NEGATIVE); NITRITE,URINE NEGATIVE (NEGATIVE); PH,URINE 6.5 (5-9); PROTEIN,URINE 2+ (NEGATIVE)
[2019-10-11 21:28] LABS: BACTERIA,URINE TRACE /HPF; SQUAMOUS EPITHELIAL CELL,UR RARE /HPF
[2019-10-11 21:37] LABS: BAND NEUTROPHILS 0 %; BASOPHILS % (MANUAL) 0 %; EOSINOPHILS % (MANUAL) 0 %; LYMPHOCYTES % (MANUAL) 10 %; MONOCYTES % (MANUAL) 8 %; NEUTROPHILS % (MANUAL) 82 %
[2019-10-11 21:38] LABS: RBC MORPH NORMAL
[2019-10-11 21:56] LABS: ALANINE AMINOTRANSFERASE 23 U/L (0-55); ALBUMIN 4.3 GM/DL (3.2-4.5); ALKALINE PHOSPHATASE 48 U/L (40-136); BILIRUBIN,TOTAL 0.4 MG/DL (0.1-1.0); BUN/CREATININE RATIO 9; CALCIUM 9.6 MG/DL (8.5-10.1); CARBON DIOXIDE 23 MMOL/L (21-32); CHLORIDE 102 MMOL/L (98-107); CREATININE SERUM 0.79 MG/DL (0.60-1.30); GFR ESTIMATED > 60; GLUCOSE 142 MG/DL (70-105); POTASSIUM 3.7 MMOL/L (3.6-5.0); SODIUM 139 MMOL/L (135-145); TOTAL PROTEIN 7.7 GM/DL (6.4-8.2)
[2019-10-11] MEDS ORDERED: NS 100 ML (IVPB) BAG IV ONE (22:00)
[2019-10-11] MEDS ORDERED: HOLD METFORMIN - RECEIVED CONTRAST 20 ML VIAL IV SCH (22:00)
[2019-10-11] MEDS ORDERED: IOHEXOL 350 MG/ML 100 ML (OMNIPAQUE 350) VIAL IV ONE (22:00)
[2019-10-11] MEDS ORDERED: metroNIDAZOLE 500MG/100ML IVPB 100 ML IV ONE (22:15)
[2019-10-11] MEDS ORDERED: cefTRIAXone FOR IV USE 1,000 MG in WATER (STERILE) FOR INJECTION 10 ML IV ONE (22:15)
[2019-10-11] MEDS ORDERED: RX-HYDROCODONE/APAP 5/325 MG #4 TAB PK PO PRN (22:15)
[2019-10-11] MEDS ORDERED: AMOX-358 PO (22:23)
[2019-10-11] MEDS ORDERED: HYDR-3870 PO (22:23)
[2019-10-11] MEDS ORDERED: metroNIDAZOLE 500 MG (FLAGYL) TAB PO ONE (22:30)
[2019-10-11 23:15] VITALS: BP 148/81
--- NOTE | 2019-10-12 07:53 | Diagnostic Imaging Report ---
INDICATION: Left lower quadrant pain. TECHNIQUE: Multiple contiguous axial images were obtained through the abdomen and pelvis after administration of intravenous contrast. Auto Exposure Controls were utilized during the CT exam to meet ALARA standards for radiation dose reduction. There is no previous CT for comparison. The visualized portions of the lung bases are clear. There were no pleural fluid collections. There is no free intraperitoneal air. Bony structures appear unremarkable. The liver shows mild increased density compatible with fatty change. There is no focal liver lesion. Patient has had prior cholecystectomy. The spleen, adrenals, and pancreas are normal. The kidneys bilaterally are unremarkable. There is no radiopaque stone or hydronephrosis. There is no retroperitoneal mass or adenopathy. There is no ascites. There is no pelvic mass or free fluid. Visualized bowel loops demonstrate diverticuli in the left colon and the junction of the sigmoid colon and descending colon, with some adjacent fat stranding compatible with diverticulitis. There is no evidence of associated abscess or obstruction. IMPRESSION: Findings compatible with acute diverticulitis at the the junction of the sigmoid and descending colon. There is no associated abscess or obstruction. There is mild fatty infiltration of the liver. Dictated by: Dictated on workstation # [id number]
== END 2019-10-11 23:17 | disposition home or self-care (01) ==
LOC: EDUNIT# 20:46 → ER 20:48
DX: K57.32 Diverticulitis of large intestine without perforation or abscess without bleeding (principal)
CPT/HCPCS: 36415; 74177; 80053; 81000; 84703; 85007; 85027

== ENCOUNTER 2022-11-19 08:14 | Emergency (ER) | payer OTHER ==
[~2022-11-19] VITALS: Ht 162 cm; Wt 117.0 kg
[~2022-11-19 08:14] MED LIST changes: +AMOX-358 PO; +HYDR-3870 PO
[2022-11-19] MEDS ORDERED: LIDOCAINE 1% INJ 20 ML VIAL INJ ONE (08:30)
[2022-11-19] MEDS ORDERED: CEPH500T PO (08:57)
--- NOTE | 2022-11-19 08:57 | ED Upper Extremity ---
General Chief Complaint: Laceration Stated Complaint: RIGHT ARM CUT Nursing Triage Note: PT AMB TO TRIAGE, PT HAS LAC TO R FA, PT WALKED BEHIND SOMEONE W CHAINSAW, LAC APPROX 6CM TO R FA. BLEEDING CONTROLLED. PT UP TO DATE ON TETNAS. RATES PAIN 11/14. PT IS ABLE TO MOVE FINGERS AND WRIST AT THIS X Source: patient Exam Limitations: no limitations History of Present Illness Date Seen by Provider: Nov 19, 2022 Time Seen by Provider: 08:20 Initial Comments 37-year-old female presents to the emergency department for a forearm laceration on the right side. She was behind someone who was using a chainsaw and cut her forearm. Her last tetanus shot was in April. No other injuries. All other systems reviewed and negative except documented per HPI. Voice recognition software was used to help create this chart Allergies and Home Medications Allergies Coded Allergies: Penicillins (Verified Allergy, Unknown, 11/19/22) Patient Home Medication List Home Medication List Reviewed: Yes Amoxicillin/Potassium Clav (Augmentin 875-125 Tablet) 1 Each Tablet, 1 EACH PO BID Prescribed by: CURTIS BERNAL on 10/11/19 2223 Ergocalciferol (Vitamin D) 50,000 Unit Capsule, 50,000 UNIT PO WEEKLY ON MONDAY, (Reported) Entered as Reported by: VISHAL MITCHELL on 11/12/13 1203 Etonogestrel (Nexplanon) 68 Mg Implant, 68 MG SQ UD, (Reported) Entered as Reported by: VISHAL MITCHELL on 11/12/13 1211 Fenofibrate,Micronized (Fenofibrate 134 Mg) 134 Mg Capsule, 134 MG PO DAILY, (Reported) Entered as Reported by: VISHAL MITCHELL on 11/12/13 1209 Hydrocodone/Acetaminophen (Lorcet 5-325 mg Tablet) 1 Each Tablet, 1 EACH PO Q4- 6HR PRN for PAIN-MODERATE Prescribed by: CURTIS BERNAL on 10/11/19 2224 Linagliptin (Tradjenta) 5 Mg Tablet, 5 MG PO DAILY, (Reported) Entered as Reported by: VISHAL MITCHELL on 11/12/13 1203 Spironolactone (Aldactone 100 Mg) 100 Mg Tablet, 100 MG PO DAILY, (Reported) Entered as Reported by: VISHAL MITCHELL on 11/12/13 1209 Review of Systems Constitutional: see HPI Past Yzdhreo-Ugmzfs-Zistrh Hx Patient Social History Tobacco Use?: No Substance use?: No Alcohol Use?: No Pt feels they are or have been: No Immunizations Up To Date First/Initial COVID19 Vaccinat: YES Seasonal Allergies Seasonal Allergies: No Past Medical History Surgery/Hospitalization HX: KNEE SURG, R WRIST SURG, , GB, BACK SURG. Surgeries: Yes (HEART CATH-NO INTERVENTIONS) Adenoidectomy, Section, Gallbladder, Orthopedic, Tonsillectomy Respiratory: Yes Asthma Cardiac: No Neurological: No Reproductive Disorders: No Female Reproductive Disorders: Polycystic Ovarian Dis Sexually Transmitted Disease: No Genitourinary: No Gastrointestinal: No Musculoskeletal: No Endocrine: Yes ("PRE-DIABETIC"; PCOS) HEENT: No Cancer: No Psychosocial: No Integumentary: No Blood Disorders: No Physical Exam Vital Signs Vital Signs - First Documented 11/19/22 08:20 Temp 37.5 Pulse 105 Resp 16 B/P (MAP) 166/106 (126) Pulse Ox 97 Capillary Refill : Less Than 3 Seconds Height, Weight, BMI Height: 5'4.00" Weight: 266lbs. oz. 120.005977ji; 44.00 BMI Method: General Appearance: WD/WN, no apparent distress Neurologic/Tendon: normal sensation, normal motor functions, normal tendon functions, no evidence tendon injury Skin: other (7 cm laceration to the right medial forearm. Neurovascular motor and sensory intact distally. No obvious tenderness involvement, nerve involvement.) Procedures/Interventions Wound Location: Upper Extremities Wound's Depth, Shape: sub Q Wound Explored: clean Irrigated w/ Saline (ccs): 500 Betadine Prep?: Yes Anesthesia: 1% Lidocaine Volume Anesthetic (ccs): 1 Suture: Prolene, Vicryl Suture Size: 4-0 Number of Sutures: 10 Layer Closure?: 2 Number Deep Layer Sutures: 3 Sterile Dressing Applied?: Yes Progress/Results/Core Measures Results/Orders My Orders Orders - MARIANA CANALES DO Lidocaine 1% Inj 20 Ml (Xylocaine 1% Inj (11/19/22 08:30) Vital Signs/I&O 11/19/22 08:20 Temp 37.5 Pulse 105 Resp 16 B/P (MAP) 166/106 (126) Pulse Ox 97 Blood Pressure Mean: 126 Departure Communication (Admissions) Patient is hemodynamically stable neurovascular and sensory intact. Hemostatic. Laceration irrigated copiously and repaired with stitches. Patient tolerated well. Impression Primary Impression: Laceration of right forearm Qualified Codes: S51.811A - Laceration without foreign body of right forearm, initial encounter Disposition: 01 HOME, SELF-CARE Condition: Stable Departure-Patient Inst. Referrals: JENNIFER CORRALES DO (PCP) Primary Care Physician SAMAN CORRALES, RUMA (Family) Primary Care Physician Patient Instructions: Laceration Repair With Stitches ED Add. Discharge Instructions: Have the stitches removed in 10 to 14 days. Take antibiotics as prescribed until they are gone. Take it easy so you do not break the stitches. Do not submerge the stitches in water but she may shower as normal. Return to the emergency department for any severe concerns, redness that spreading or drainage looks like pus. All discharge instructions reviewed with patient and/or family. Voiced under standing. Scripts Cephalexin (Cephalexin) 500 Mg Tablet 500 MG PO BID for 7 Days, #14 TAB Prov: MARIANA CANALES DO 11/19/22 MARIANA CANALES DO Nov 19, 2022 08:57
[2022-11-19 09:19] VITALS: BP 153/103
== END 2022-11-19 09:19 | disposition home or self-care (01) ==
LOC: EDUNIT# 08:14 → ER 08:17
DX: S51.811A Laceration without foreign body of right forearm, initial encounter (principal); Z88.0 Allergy status to penicillin; W29.3XXA Contact with powered garden and outdoor hand tools and machinery, initial encounter
CPT/HCPCS: 12032